=== PATIENT | female | born 1995 | race African-American/Black ===

== ENCOUNTER 2018-04-09 16:25 | Emergency (ER) | payer SELFPAY ==
[2018-04-09] MEDS ORDERED: Ondansetron ODT 8 MG TAB ONE (16:36)
== END 2018-04-09 17:05 | disposition home or self-care (01) ==
LOC: ERS 16:25
DX: O99.89 Other specified diseases and conditions complicating pregnancy, childbirth and the puerperium (principal); R11.0 Nausea
CPT/HCPCS: 99283